=== PATIENT | female | born 1965 | race Caucasian/White ===

== ENCOUNTER 2018-05-13 17:58 | Inpatient (IN) | payer OTHER ==
[~2018-05-13] VITALS: Ht 157.5 cm; Wt 71.7 kg
--- NOTE | ~2018-05-13 | CON ---
[address] [address] CONSULTATION Name: LOREN LYONS Room: [address] IN M.R.#: [id number] Admission: 05/13/18 Attend Phys: Kei Nelson MD Discharge: 05/18/18 Date of : 63 Report #: [id number] THIS REPORT FOR: //name// CC: FAM physician/PCP Kei Nelson MD DATE OF SERVICE: 05/14/2018 REFERRING PHYSICIAN: Kei Nelson MD The patient has no primary care provider. REASON FOR CONSULTATION: Hematemesis. IMPRESSION: 1. Hematemesis of uncertain significance. 2. Decompensated liver disease secondary to chronic alcoholic liver disease, chronic alcohol abuse with continued alcohol abuse. 3. Thrombocytopenia secondary to #2. 4. History of anxiety and depression. RECOMMENDATIONS: 1. Since there is no evidence for any active overt GI bleeding such as overt hematemesis, melena or anemia, we will hold off on proceeding with an upper endoscopy until tomorrow. 2. We will continue the patient on IV Protonix and potentially octreotide for now. 3. Alcohol withdrawal precautions are in order. 4. Alcohol rehab upon discharge. Time spent in recording, reviewing records and performing this consultation was 30 minutes. HISTORY OF PRESENT ILLNESS: The patient is a 53-year-old white female, alcoholic with decompensated liver disease secondary to alcohol abuse who was well known to me from previous evaluation back in 2014 when we saw her at that time. She has known history of chronic alcohol abuse and continued use and was admitted to the hospital because of problems related to same. She has been drinking at least a fifth of vodka every day for the last several days and when they went to find the patient, she was in a hotel and apparently had been vomiting blood. She was brought to the hospital by significant other to be evaluated. She does not have a primary care provider and does not follow up since 2014. ALLERGIES: [place] [address] CONSULTATION Name: LOREN LYONS Room: [address] IN M.R.#: [id number] Admission: 05/13/18 Attend Phys: Kei Nelson MD Discharge: 05/18/18 Date of : 63 Report #: [id number] MEDICATIONS: Supposed to be Abilify, Protonix, rifaximin, Inderal, Zoloft, MiraLax, lactulose, magnesium and vitamins, but she is not on any medications. PAST MEDICAL HISTORY: Remarkable for chronic alcohol abuse with decompensated liver disease, history of depression. SOCIAL HISTORY: She is single. She smokes a half pack to a pack per day, drinks alcohol on a daily basis. FAMILY HISTORY: Negative. PHYSICAL EXAMINATION: GENERAL: Revealed a non-ill appearing 53-year-old white female who is awake and alert. CARDIOPULMONARY: Revealed a regular rate and rhythm. Lungs were clear. ABDOMEN: Soft and not particularly tender. No rebound or guarding noted. LABORATORY DATA: From admission revealed a white count of 7.6, hemoglobin 14.5, platelet count 101,000. MCV is 91.7, RDW is 14.5. Her sodium is 142, potassium 4.2, chloride 110, bicarbonate is 27, BUN is 4, creatinine 0.5. Her GFR is 129. Her bilirubin from the 24th was 2.1, alkaline phosphatase 135, AST 61, ALT 37, albumin is 3.2. Her INR is 1.2. CT scan of the abdomen and pelvis performed on the revealed fatty infiltration of the liver with cirrhosis. She has cholelithiasis without evidence for acute cholecystitis. There is no evidence for splenomegaly or ascites. She does have varices noted in left upper quadrant. DISCUSSION: At the present time, the patient has had some problems with hematemesis. We will proceed with endoscopic evaluation of the upper GI tract tomorrow and make further recommendations thereafter. By: [id number] Beltran DO /juanito
[~2018-05-13 17:58] MED LIST: ABILIFY 5 MG TAB5 MG PO; ATIVAN1 MG PO; AUGMENTIN 875875 MG PO; HALOPERIDOL 5 MG5 MG PO; HALOPERIDOL5 MG/1 M1 IM; LACTULOSE20 GM/30 M PO; MAGOX 400400 MG PO; MIRALAX17 GM PO; PEPCID20 MG PO; PROPRANOLOL 1010 MG PO; PROTONIX40 M1 PO; THIAMINE HCL100 MG PO; TRINATE TABLET1 TAB PO; XIFAXAN550 M1 PO; ZOLOFT25 MG PO
[2018-05-13 18:11] VITALS: BP 160/106
[2018-05-13 18:25] LABS: URINE BILIRUBIN NEGATIVE (Negative); URINE BLOOD TRACE (Negative); URINE CLARITY CLEAR; URINE COLOR YELLOW; URINE GLUCOSE-RANDOM NEGATIVE (Negative); URINE KETONES NEGATIVE (Negative); URINE LEUKOCYTES-REFLEX NEGATIVE (Negative); URINE NITRITE-REFLEX NEGATIVE (Negative); URINE PROTEIN NEGATIVE (Negative); URINE SPECIFIC GRAVITY <= 1.005 (1.005-1.030)
[2018-05-13 19:00] LABS: ABSOLUTE BASOPHILS 0.1 thou/uL (0.0-0.2); ABSOLUTE EOSINOPHILS 0.3 thou/uL (0.0-0.7); ABSOLUTE LYMPHOCYTES 1.7 thou/uL (0.8-5.3); ABSOLUTE MONOCYTES 0.7 thou/uL (0.0-1.2); ABSOLUTE NEUTROPHILS 4.9 thou/uL (1.6-8.1); BASOPHILS 0.7 %; EOSINOPHILS 3.5 %; HEMATOCRIT 42.2 % (37.0-47.0); HEMOGLOBIN 14.5 gm/dL (12.0-15.0); LYMPHOCYTES 22.8 %; MCH 31.4 pg (26.0-34.0); MCHC 34.2 g/dL (28.0-37.0); MCV 91.7 fL (80.0-100.0); MONOCYTES 8.8 %; MPV 10.9 fl. (7.2-11.1); NUCLEATED RBCS 0 /100WBC; PLATELET COUNT* 101 thou/uL (150-400); POLYS 64.2 %; RBC 4.61 mil/uL (4.20-5.00); RDW-CV 14.5 % (10.5-14.5); WBC 7.6 thou/uL (4.0-11.0)
[2018-05-13 19:11] LABS: ANION GAP 12 mmol/L (7-16); BUN 4 mg/dL (7-18); CALCIUM 7.9 mg/dL (8.5-10.1); CHLORIDE 108 mmol/L (98-107); CO2 27 mmol/L (21-32); CREATININE 0.4 mg/dL (0.6-1.3); GLUCOSE 86 mg/dL (70-99); POTASSIUM 3.3 mmol/L (3.5-5.1); SODIUM 147 mmol/L (136-145)
[2018-05-13 19:12] LABS: ALCOHOL 283 mg/dL (<10)
[2018-05-13 19:13] LABS: ACETAMINOPHEN < 2 ug/mL (10-30)
[2018-05-13 19:15] LABS: APTT 27.5 Seconds (25.0-31.3); INR 1.2; PROTIME 12.5 Seconds (9.20-11.50)
[2018-05-13 19:17] LABS: ALBUMIN 3.2 g/dL (3.4-5.0); ALKALINE PHOSPHATASE 135 U/L (46-116); LIPASE 194 U/L (73-393); SGOT 61 U/L (15-37); SGPT 37 U/L (30-65); TOTAL BILIRUBIN 2.1 mg/dL (<0.1-1.0); TOTAL PROTEIN 6.1 g/dL (6.4-8.2); TROPONIN-I LEVEL <0.06 ng/mL (<0.06)
[2018-05-13 20:42] LABS: AMP/METHAMP Negative (Negative); BARBITURATES Negative (Negative); BENZODIAZEPINES Negative (Negative); COCAINE Negative (Negative); METHADONE Negative (Negative); OPIATES Negative (Negative); PCP Negative (Negative); THC Negative (Negative)
[2018-05-13 21:49] VITALS: BP 94/46
[2018-05-13 22:08] VITALS: BP 154/77
[2018-05-13 23:00] VITALS: BP 127/73
[2018-05-14] VITALS (15 sets, daily range): BP systolic 105–145; BP diastolic 49–82
[2018-05-15] VITALS (18 sets, daily range): BP systolic 124–162; BP diastolic 67–93
--- NOTE | 2018-05-15 11:18 | EKG ---
[place] [address] ELECTROCARDIOGRAM REPORT Name: LOREN LYONS Room: [address] ADM IN .R.#: [id number] Admission: 05/13/18 Attend Phys: Kei Nelson MD Discharge: Date of : 63 Report #: [id number] THIS REPORT FOR: //name// [facility] ED Test Date: 2018-05-13 Test Time: 18:18:36 Pat Name: LOREN LYONS Department: Room: [facility] Gender: F Academic Associate: Deya MIRANDA : 1965 Requested By: Raphael Brito Order Number: [id number] MD: Jason Dill Measurements Intervals [place] Rate: 105 P: 53 AR: 143 QRS: 45 QRSD: 84 T: 10 QT: 338 QTc: 447 Interpretive Statements Sinus tachycardia Consider right atrial enlargement RSR' in V1 or V2, probably normal variant ST elev, probable normal early repol pattern Compared to ECG 04/23/2015 10:33:26 Sinus rhythm no longer present Electronically Signed On 05-15-2018 11:18:16 [employer] PRESIDENT [employer] by Jason Dill [email or web address] <ELECTRONICALLY SIGNED> By: Jason Dill MD, FACC 05/15/18 1118 17 17 Jason Dill MD, FAC /EPI
[2018-05-15 11:48] LABS: MAGNESIUM 1.8 mg/dL (1.8-2.4)
[2018-05-15 23:08] LABS: HEPATITIS B SURFACE AG Negative (Negative)
[2018-05-16] VITALS: BP 149/81
[2018-05-16 04:00] VITALS: BP 154/77
[2018-05-16 04:55] LABS: ABSOLUTE EOSINOPHILS 0.3 thou/uL (0.0-0.7); ABSOLUTE LYMPHOCYTES 0.7 thou/uL (0.8-5.3); ABSOLUTE MONOCYTES 0.3 thou/uL (0.0-1.2); ABSOLUTE NEUTROPHILS 3.8 thou/uL (1.6-8.1); BASOPHILS 0.4 %; EOSINOPHILS 5.3 %; HEMATOCRIT 36.2 % (37.0-47.0); HEMOGLOBIN 12.2 gm/dL (12.0-15.0); LYMPHOCYTES 13.3 %; MCH 31.6 pg (26.0-34.0); MCHC 33.8 g/dL (28.0-37.0); MCV 93.3 fL (80.0-100.0); MONOCYTES 6.8 %; MPV 11.3 fl. (7.2-11.1); NUCLEATED RBCS 0 /100WBC; PLATELET COUNT* 67 thou/uL (150-400); POLYS 74.2 %; RBC 3.88 mil/uL (4.20-5.00); RDW-CV 14.3 % (10.5-14.5); WBC 5.1 thou/uL (4.0-11.0)
[2018-05-16 05:07] LABS: ALBUMIN 2.2 g/dL (3.4-5.0); CALCIUM 7.5 mg/dL (8.5-10.1); CREATININE 0.4 mg/dL (0.6-1.3); POTASSIUM 3.6 mmol/L (3.5-5.1); TOTAL BILIRUBIN 1.5 mg/dL (<0.1-1.0); TOTAL PROTEIN 4.8 g/dL (6.4-8.2)
[2018-05-16 07:48] VITALS: BP 156/78
[2018-05-16 11:54] VITALS: BP 153/77
[2018-05-16 16:00] VITALS: BP 156/77
[2018-05-16 20:00] VITALS: BP 163/84
[2018-05-17] VITALS: BP 147/75
[2018-05-17 04:00] VITALS: BP 151/85
[2018-05-17 05:22] LABS: HEMATOCRIT 35.5 % (37.0-47.0); HEMOGLOBIN 12.1 gm/dL (12.0-15.0); MCH 31.7 pg (26.0-34.0); MCHC 34.1 g/dL (28.0-37.0); MCV 92.9 fL (80.0-100.0); MPV 11.1 fl. (7.2-11.1); RBC 3.82 mil/uL (4.20-5.00); RDW-CV 14.1 % (10.5-14.5); WBC 4.4 thou/uL (4.0-11.0)
[2018-05-17 06:47] LABS: ALBUMIN 2.3 g/dL (3.4-5.0); CALCIUM 7.7 mg/dL (8.5-10.1); CREATININE 0.5 mg/dL (0.6-1.3); MAGNESIUM 1.2 mg/dL (1.8-2.4); POTASSIUM 3.7 mmol/L (3.5-5.1); TOTAL PROTEIN 4.8 g/dL (6.4-8.2)
[2018-05-17 08:00] VITALS: BP 157/83
[2018-05-17 12:34] VITALS: BP 156/75
[2018-05-17 16:00] VITALS: BP 144/80
[2018-05-17 20:00] VITALS: BP 157/86
[2018-05-18] VITALS: BP 146/79
[2018-05-18 04:00] VITALS: BP 139/65
[2018-05-18 06:09] LABS: HEMOGLOBIN 12.2 gm/dL (12.0-15.0); MCH 31.6 pg (26.0-34.0); MCHC 33.8 g/dL (28.0-37.0); MCV 93.4 fL (80.0-100.0); MPV 10.6 fl. (7.2-11.1); RBC 3.86 mil/uL (4.20-5.00); RDW-CV 14.3 % (10.5-14.5); WBC 4.5 thou/uL (4.0-11.0)
[2018-05-18 06:31] LABS: CALCIUM 7.6 mg/dL (8.5-10.1); CREATININE 0.4 mg/dL (0.6-1.3); MAGNESIUM 1.4 mg/dL (1.8-2.4); POTASSIUM 3.5 mmol/L (3.5-5.1)
[2018-05-18 08:00] VITALS: BP 154/70
[2018-05-18 12:25] VITALS: BP 143/75
[2018-05-18] MEDS ORDERED: DIFLUCAN200 MG PO (14:07)
[2018-05-18] MEDS ORDERED: LACTULOSE20 GM/30 M PO (14:11)
[2018-05-18] MEDS ORDERED: PROTONIX40 M1 PO (14:12)
[2018-05-18 14:13] VITALS: BP 143/75
[2018-05-18] MEDS ORDERED: VITAMIN B-1100 M1 PO (14:27)
[2018-05-18] MEDS ORDERED: FOLIC ACID1 MG PO (14:28)
== END 2018-05-18 15:15 | disposition home or self-care (01) | DRG 377 ==
LOC: M.ERS 17:58 → M.ICU 18:54 → M.2W 18:54 → M.TBA-ER 18:54 → M.ICU 21:52 → M.2W 05-15 17:41
PROVIDERS: Family Medicine; Internal Medicine Gastroenterology
PROC: 02HV33Z Insertion of Infusion Device into Superior Vena Cava, Percutaneous Approach (ICD-10-PCS; principal; 2018-05-13)
PROC: 0DJ08ZZ Inspection of Upper Intestinal Tract, Via Natural or Artificial Opening Endoscopic (ICD-10-PCS; 2018-05-16)
DX: K29.21 Alcoholic gastritis with bleeding (principal); E43 Unspecified severe protein-calorie malnutrition; J96.01 Acute respiratory failure with hypoxia; I81 Portal vein thrombosis; F10.121 Alcohol abuse with intoxication delirium; K80.20 Calculus of gallbladder without cholecystitis without obstruction; K72.90 Hepatic failure, unspecified without coma; K22.2 Esophageal obstruction; F17.210 Nicotine dependence, cigarettes, uncomplicated; Y90.9 Presence of alcohol in blood, level not specified; R16.1 Splenomegaly, not elsewhere classified; I85.00 Esophageal varices without bleeding; B37.9 Candidiasis, unspecified; E83.42 Hypomagnesemia; F32.9 Major depressive disorder, single episode, unspecified; K21.9 Gastro-esophageal reflux disease without esophagitis; F41.9 Anxiety disorder, unspecified; D69.59 Other secondary thrombocytopenia; K70.9 Alcoholic liver disease, unspecified; Z79.899 Other long term (current) drug therapy; Z68.28 Body mass index [BMI] 28.0-28.9, adult; Z88.0 Allergy status to penicillin

== ENCOUNTER 2019-10-18 20:21 | Inpatient (IN) | payer OTHER ==
[~2019-10-18] VITALS: Ht 165.1 cm; Wt 75.3 kg
--- NOTE | ~2019-10-18 | CON ---
[address] [address] CONSULTATION Name: ELOYLOREN L Room: [address] IN ..#: [id number] Admission: 10/18/19 Attend Phys: Matthias Guevara MD Discharge: Date of : 63 Report #: [id number] THIS REPORT FOR: //name// cc: MAMTA Baltazar family physician/PCP MAMTA Baltazar family physician/PCP ~ THIS REPORT FOR: //name// CC: Matthias Guevara FAM physician/PCP DATE OF SERVICE: 10/19/2019 HISTORY OF PRESENT ILLNESS: This is a pleasant 54-year-old female with past medical history significant for decompensated liver disease from alcohol, alcohol abuse, depression, who is presenting to the hospital with abdominal pain after four day episode of binge drinking. The patient also reports vomiting red colored blood. The patient is a poor historian and is somnolent secondary to alcohol abuse. Most of the history has been obtained from the patient's chart. PAST MEDICAL HISTORY: The patient has known history of alcohol abuse and was scoped previously in 04/2018. She also has a history of depression. PAST SURGICAL HISTORY: Nonsignificant. SOCIAL HISTORY: The patient drinks a fifth of hard liquor every day. Smokes a pack and a half of cigarettes. FAMILY HISTORY: Unable to obtain because of the patient's mental status. PHYSICAL EXAMINATION: GENERAL: The patient is alert and awake, mildly arousable. VITAL SIGNS: Temperature 37.2, pulse rate 118, respirations 21, blood pressure 133/72, pulse ox 97%. HEENT: Pupils are equal, round, reactive. Mucous membranes are moist. There is a spider angiomata scattered all over the upper extremities. LUNGS: Clear to auscultation bilaterally. CARDIOVASCULAR: Rate and rhythm regular, S1, S2 present. ABDOMEN: Soft. Tenderness to palpation in the epigastric right upper quadrant, left upper quadrant regions. EXTREMITIES: Warm, trace edema. LABORATORY DATA: Sodium 141, potassium 3.4, chloride 106, bicarbonate 27, BUN 8, creatinine 0.7, total bilirubin 1.6, AST 104, ALT 38, alkaline phosphatase 163, lipase 182. INR 1.2, hemoglobin 12.8, hematocrit 36.9, platelet count 107, WBC count 5.7. [place] [address] CONSULTATION Name: LOREN LYONS Triny Room: [address]#: [id number] Admission: 10/18/19 Attend Phys: Matthias Guevara MD Discharge: Date of : 63 Report #: [id number] IMAGING: CT abdomen and pelvis pending. ASSESSMENT AND PLAN: Pleasant 54-year-old female with alcohol abuse, ending up with severe alcoholic cirrhosis, presenting for evaluation. 1. Varices. The patient claims she has a history of varices. The patient's last EGD performed on 05/15 demonstrates grade 1 varices in the lower third of esophagus. 2. We will proceed with EGD tomorrow. Keep her n.p.o. after midnight for that. 3. Cirrhosis. The patient does appear to have decompensated cirrhosis as evidenced by the presence of spider angiomata. I will wait for the CT abdomen results. If there is evidence of fluid collection, we may have to start her on diuretics prior to discharge, encephalopathy, unclear at this time because of acute alcohol intoxication. Once the patient is more mentally awake, we can discuss starting her on treatment for encephalopathy. Thank you for this consultation. By: [id number] Smith MD /nt
[~2019-10-18 20:21] MED LIST changes: +DIFLUCAN200 MG PO; +FOLIC ACID1 MG PO; +VITAMIN B-1100 M1 PO
[2019-10-18 20:27] VITALS: BP 156/103; BP 163/83
[2019-10-18] MEDS ORDERED: PROZAC10 M1 PO (20:34)
[2019-10-18] MEDS ORDERED: MAGNESIUM250 M1 PO (20:34)
[2019-10-18] MEDS ORDERED: CALCIUM500 MG PO (20:34)
[2019-10-18 21:10] LABS: ABSOLUTE LYMPHOCYTES 1.5 thou/uL (0.8-5.3); ABSOLUTE MONOCYTES 0.5 thou/uL (0.0-1.2); ABSOLUTE NEUTROPHILS 6.1 thou/uL (1.6-8.1); BASOPHILS 0.5 %; EOSINOPHILS 0.2 %; HEMATOCRIT 45.4 % (37.0-47.0); HEMOGLOBIN 15.6 gm/dL (12.0-15.0); LYMPHOCYTES 18.2 %; MCH 31.6 pg (26.0-34.0); MCHC 34.4 g/dL (28.0-37.0); MONOCYTES 6.2 %; MPV 10.8 fl. (7.2-11.1); NUCLEATED RBCS 0 /100WBC; PLATELET COUNT* 137 thou/uL (150-400); POLYS 74.9 %; RBC 4.93 mil/uL (4.20-5.00); RDW-CV 15.1 % (10.5-14.5); WBC 8.2 thou/uL (4.0-11.0)
[2019-10-18 21:32] LABS: URINE BILIRUBIN NEGATIVE (Negative); URINE BLOOD 2+ (Negative); URINE CLARITY CLEAR; URINE COLOR YELLOW; URINE GLUCOSE-RANDOM NEGATIVE (Negative); URINE KETONES 1+ (Negative); URINE LEUKOCYTES-REFLEX NEGATIVE (Negative); URINE NITRITE-REFLEX NEGATIVE (Negative); URINE PROTEIN NEGATIVE (Negative); URINE SPECIFIC GRAVITY 1.015 (1.005-1.030); URINE UROBILINOGEN 0.2 E.U./dl (0.2-1.0)
[2019-10-18 21:33] LABS: CALCIUM 7.9 mg/dL (8.5-10.1); CREATININE 0.6 mg/dL (0.6-1.3); POTASSIUM 3.8 mmol/L (3.5-5.1)
[2019-10-18 21:43] LABS: ALBUMIN 3.2 g/dL (3.4-5.0); MAGNESIUM 1.5 mg/dL (1.8-2.4); TOTAL BILIRUBIN 1.6 mg/dL (<0.1-1.0); TOTAL PROTEIN 6.6 g/dL (6.4-8.2)
[2019-10-18 21:44] LABS: RENAL EPITHELIAL CELLS 0-3 Few /LPF (None Seen); SQUAMOUS 0-3 Few /LPF (0-3); TRANSITIONAL EPITHEL CELL 0-3 Few /LPF (None Seen); URINE WBC-REFLEX 6-15 Few /HPF (0-5)
[2019-10-18 21:45] LABS: COARSE GRANULAR CASTS 0-3 Few /LPF (None Seen); CRYSTALS None Seen /LPF (None Seen); FINE GRANULAR CASTS 0-3 Few /LPF (None Seen); HYALINE CASTS 0-3 Few /LPF (None Seen); MUCUS 4-6 Moderate strn/LPF (None Seen)
[2019-10-18 23:46] VITALS: BP 134/68
[2019-10-18 23:47] VITALS: BP 141/71
[2019-10-19] VITALS (25 sets, daily range): BP systolic 116–157; BP diastolic 53–92
[2019-10-19 01:46] LABS: INR 1.2; PROTIME 12.6 Seconds (9.20-11.50)
--- NOTE | 2019-10-19 04:03 | NUR ---
RECIEVED PT FROM ER ARROUND MIDNIGHT, ON ROOM AIR AND TACHYCARDIA NOTED. PT STILL DRUNK AND REPEATING HER SELF SOMETIMES. DISCUSS ABOUT WHAT TO EXPECT WHEN SHE WILL WITHDRAW WITH THE PT AND SEEMS SHE UNDERSTOOD. PT SOMETIME ANXIOUS WITH TEARY EYES. KEPT CALM AND RELAX. SHE REQUESTED FOR TRAN CATH INSERTION ACCORDING TO HER SHE WILL PEE ALL THE TIME AND MIGHT PEE ON THE BED. TRAN INSERTED WITH NO COMPLICATION NOTED. PT SAT DROPED TO 88% WHILE SLEEPING, PUT ON NC AT 2LPM. PT TOLERATED SOLID FOOD AND ATE ALOT, ACCORDING TO HER, SHE DIDN'T EAT FOR 5 DAYS. KEPT PT SAFE. STILL TACHYCARDIC AND SLEEPING NOW. CONTINUE MONITORING AND TOWARD GOALS.
[2019-10-19 05:56] LABS: HEMATOCRIT 36.9 % (37.0-47.0); MCHC 34.7 g/dL (28.0-37.0); MCV 92.1 fL (80.0-100.0); MPV 10.8 fl. (7.2-11.1); RBC 4.01 mil/uL (4.20-5.00); RDW-CV 14.8 % (10.5-14.5); WBC 5.7 thou/uL (4.0-11.0)
[2019-10-19 06:01] LABS: HEMOGLOBIN 12.8 gm/dL (12.0-15.0)
[2019-10-19 06:02] LABS: CALCIUM 7.3 mg/dL (8.5-10.1); CREATININE 0.7 mg/dL (0.6-1.3); MAGNESIUM 1.9 mg/dL (1.8-2.4); POTASSIUM 3.4 mmol/L (3.5-5.1)
--- NOTE | 2019-10-19 06:58 | NUR ---
PER ER NURSE, (JANE) WANTED PT TO BE CONFIDENTIAL AND TALK TO HER ONLY REGARDINFG UPDATES AND INFORMATION.
--- NOTE | 2019-10-19 16:37 | NUR ---
PT IS ALERT BUT CONFUSED AT TIMES.PT HYPERVENTILATING WITH MEDICATIONS GIVEN AND PLACED ON 2L O2 NC.MATHEMATICS INSTRUCTOR IN PLACE.PT C/O NAUSEA-MEDICATIONS GIVEN.PT DRY HEAVED SMALL AMOUNT OF BLOOD.PHYSICIAN NOTIFIED WITH NEW ORDERS TO CONSULT GI AND CT ABD. PT PLACED ON CLEAR LIQUID DIET AND NPO AT MIDNIGHT FOR EGD IN AM.PT INFORMED OF PLAN OF CARE AND COMMUNICATES UNDERTSTANDING.CIWA ASSESSMENT COMPLETED PER PROTOCOL.POTASSIUM CORRECTED.CALL LIGHT AND FALL PRECAUTIONS IN PLACE.WILL CONTINUE TO MONITOR FOR DURATION OF SHIFT.
[2019-10-20] VITALS (23 sets, daily range): BP systolic 121–165; BP diastolic 63–86
[2019-10-20 03:23] LABS: ABSOLUTE LYMPHOCYTES 0.6 thou/uL (0.8-5.3); ABSOLUTE MONOCYTES 0.7 thou/uL (0.0-1.2); ABSOLUTE NEUTROPHILS 3.6 thou/uL (1.6-8.1); BASOPHILS 0.5 %; EOSINOPHILS 0.8 %; HEMATOCRIT 40.4 % (37.0-47.0); HEMOGLOBIN 13.8 gm/dL (12.0-15.0); LYMPHOCYTES 11.7 %; MCH 31.4 pg (26.0-34.0); MCHC 34.2 g/dL (28.0-37.0); MCV 91.9 fL (80.0-100.0); MONOCYTES 13.7 %; MPV 10.6 fl. (7.2-11.1); NUCLEATED RBCS 0 /100WBC; PLATELET COUNT* 73 thou/uL (150-400); POLYS 73.3 %; RBC 4.39 mil/uL (4.20-5.00); RDW-CV 14.6 % (10.5-14.5)
[2019-10-20 03:30] LABS: CALCIUM 7.8 mg/dL (8.5-10.1); CREATININE 0.7 mg/dL (0.6-1.3); POTASSIUM 3.9 mmol/L (3.5-5.1)
--- NOTE | 2019-10-20 06:12 | NUR ---
PT. REMAINS CONFUSED BUT DROWSY. CIWA 8-10. IVF REMAIN INFUSING. ATIVAN GIVEN ONCE PER PRN ORDER DUE TO ANXIETY. PT. HAS SLEPT WELL THROUGHOUT SHIFT. SINUS RHYTHM. WILL CONTINUE TO MONITOR.
--- NOTE | 2019-10-20 14:32 | EKG ---
[place] [address] ELECTROCARDIOGRAM REPORT Name: LOREN LYONS Room: [address] IN [facility]#: [id number] Admission: 10/18/19 Attend Phys: Matthias Guevara, Discharge: Date of : 63 Date of Service: 10/18/192036 Report #: [id number] THIS REPORT FOR: //name// [facility] ED Test Date: 2019-10-18 Test Time: 20:37:27 Pat Name: LOREN LYONS Department: Room: [facility] Gender: F Coppersmith Helper: MR : 1965 Requested By: Carmela Stover Order Number: [id number] MD: Jason Dill Measurements Intervals [place] Rate: 103 P: 70 MS: 133 QRS: 42 QRSD: 83 T: 19 QT: 349 QTc: 457 Interpretive Statements Sinus tachycardia Compared to ECG 05/13/2018 18:18:36 ST (T wave) deviation no longer present Electronically Signed On 10-20-2019 14:30:41 CDT by Jason Dill [email or web address] <ELECTRONICALLY SIGNED> By: Jason Dill MD, FAC 10/20/19 1430 36 36 Jason Dill MD, [facility] /EPI
--- NOTE | 2019-10-20 14:48 | NUR ---
PATIENT GOING TO OR FOR EGD AT THIS TIME
--- NOTE | 2019-10-20 15:27 | NUR ---
ICU rounds: A&Ox3, slurred speech. Sleeping alot today. EGD today. GI following. CM spoke with Pt's sig other via phone. Pt is normally active and independent, continues to work outside of the home. No DME. No hx of HH or SNF. Per SO, Pt goes on "binges" when Pt's parents give her a hard time, Pt's parents are not accepting of Pt being gonzales. Hx of inpt wilbert at [facility]. Per , watch for DTs, anticipate that Pt will be in the hospital a few more days. Pt stable. Following.
--- NOTE | 2019-10-20 17:57 | NUR ---
PATIENT HAS NOT MADE MUCH PROGRESS TOWARDS GOALS. HAS SLEPT MOST OF THE DAY, CIWAS REMAIN LOW. PATIENT WENT FOR EGD, AND STABLE POST PROCEDURE. RESTING IN BED AT THIS TIME. VITALS STABLE. UPDATED. BED IN LOWEST POSITION, CALL LIGHT IN REACH.
[2019-10-21] VITALS (22 sets, daily range): BP systolic 135–154; BP diastolic 61–88
[2019-10-21 04:21] LABS: ABSOLUTE EOSINOPHILS 0.2 thou/uL (0.0-0.7); ABSOLUTE LYMPHOCYTES 0.8 thou/uL (0.8-5.3); ABSOLUTE MONOCYTES 0.6 thou/uL (0.0-1.2); ABSOLUTE NEUTROPHILS 4.5 thou/uL (1.6-8.1); BASOPHILS 0.4 %; EOSINOPHILS 2.8 %; HEMOGLOBIN 13.2 gm/dL (12.0-15.0); LYMPHOCYTES 12.9 %; MCH 32.2 pg (26.0-34.0); MCHC 34.7 g/dL (28.0-37.0); MCV 92.7 fL (80.0-100.0); MONOCYTES 10.4 %; MPV 11.2 fl. (7.2-11.1); NUCLEATED RBCS 0 /100WBC; PLATELET COUNT* 73 thou/uL (150-400); POLYS 73.5 %; RDW-CV 14.5 % (10.5-14.5); WBC 6.2 thou/uL (4.0-11.0)
[2019-10-21 04:35] LABS: CALCIUM 7.4 mg/dL (8.5-10.1); CREATININE 0.7 mg/dL (0.6-1.3); POTASSIUM 3.4 mmol/L (3.5-5.1)
--- NOTE | 2019-10-21 14:11 | NUR ---
ICU rounds: Tele status.EGD today. Per , anticipate dc soon.
--- NOTE | 2019-10-21 15:30 | NUR ---
PT TRANSFERED TO ROOM 209 ALL BELONGINGS AND PACKED AND SENT WITH PT TRANSPORTED VIA WHEELCHAIR BY NURSING STAFF
[2019-10-22] VITALS: BP 144/66
[2019-10-22 04:00] VITALS: BP 137/63
--- NOTE | 2019-10-22 06:58 | NUR ---
ASSUMED PT CARE AT 1910. NURSING ASSESSMENT COMPLETED. DRAPERY SEWER HAND IN PLACE, TRACING SR. HOURLY ROUNDING COMPLETED. CALL LIGHT WITHIN REACH. PT VOICED NO CONCERNS THIS SHIFT.
[2019-10-22 08:00] VITALS: BP 145/74
[2019-10-22 09:25] VITALS: BP 137/63
--- NOTE | 2019-10-22 09:27 | NUR ---
Pt discharging to home today. LINA arranged PCP appt for Pt through the [facility] in [place], [place] for 10/27/19 at 930am, Pt will see Marisel Hendricks NP. LINA also asked [employer] to reach out to Pt prior to dc to [facility] for [place] eligibility. Per Pt, she was furloughed d/t covid and believes that she has lost her insurance.
--- NOTE | 2019-10-22 09:34 | NUR ---
PT IS A/O,VSS,ONION TOPPER IN PLACE.NO C/O PAIN.CIWA ASSESSMENT SCORES 1 FOR MILD ANXIETY.CALL LIGHT AND FALL PRECAUTIONS IN PLACE.WILL CONTINUE TO MONITOR.
[2019-10-22] MEDS ORDERED: XIFAXAN550 M1 PO (09:37)
[2019-10-22 09:44] VITALS: BP 137/63
--- NOTE | 2019-10-22 10:24 | NUR ---
PT OK FOR DISCHARGE.PAPERWORK COMPLETED AND GIVEN TO THE PT.SCRIPT GIVEN WITH EDUCATION.ALL PERSONAL BELONGINGS PACKED AND TAKEN WITH PT.IV REMOVED.HEART MONITOR RETURNED TO NURSING STATION.PT WHEELED OUT BY NURSING STAFF TO PERSONAL VEHICLE.
== END 2019-10-22 10:50 | disposition home or self-care (01) | DRG 368 ==
LOC: M.ERS 20:21 → M.TBA-ER 23:04 → M.ICU 23:04 → M.2W 10-21 15:43
PROVIDERS: Emergency Medicine; ADMIT Internal Medicine
PROC: 0DJ08ZZ Inspection of Upper Intestinal Tract, Via Natural or Artificial Opening Endoscopic (ICD-10-PCS; principal; 2019-10-20)
DX: I85.01 Esophageal varices with bleeding (principal); G92 Toxic encephalopathy; K29.71 Gastritis, unspecified, with bleeding; K70.30 Alcoholic cirrhosis of liver without ascites; K72.90 Hepatic failure, unspecified without coma; F32.9 Major depressive disorder, single episode, unspecified; E83.42 Hypomagnesemia; F17.210 Nicotine dependence, cigarettes, uncomplicated; E86.0 Dehydration; D69.6 Thrombocytopenia, unspecified; Z88.0 Allergy status to penicillin; Z79.899 Other long term (current) drug therapy